=== PATIENT | female | born 1990 | race Native Hawaiian/Other Pacific Islander ===

== ENCOUNTER 2016-10-31 08:34 | Outpatient (CLI) | payer OTHER | END 2016-10-31 21:36 | disposition home or self-care (01) | LOC: US 08:34 | DX: R10.11 Right upper quadrant pain (principal) ==

== ENCOUNTER 2016-11-03 06:36 | Observation (INO) | payer OTHER ==
[~2016-11-03] VITALS: Ht 162.6 cm; Wt 87.7 kg
[2016-11-03] VITALS (11 sets, daily range): BP systolic 105–133; BP diastolic 56–85; TEMP 97.7–98.8; Ht 162.6 cm; Wt 87.7 kg
[2016-11-03 08:37] LABS: POTASSIUM 4.1 mmol/L (3.6-5.2); SODIUM 135 mmol/L (136-145)
[2016-11-03 08:46] LABS: PLATELET COUNT 327 K/uL (152-353)
[2016-11-04 00:18] VITALS: BP 122/79; TEMP 98.3
--- NOTE | 2016-11-04 01:24 | NUR ---
PT READY FOR DISCHARGE. HAS WALKED TO BATHROOM X2 TO URINATE. DRANK WATER WITHOUT C/O NAUSEA OR VOMITING. IV DC/D INTACT NO VOICED COMPLAINTS. OUT BY WHEELCHAIR TO AWAITING VEHICLE. DISCHARGE INSTRUCTIONS GIVEN, AND PRESCRIPTION FOR PERCOCET GIVEN.
== END 2016-11-04 01:25 | disposition home or self-care (01) ==
LOC: ED 06:36 → MED/SURG 07:55
PROVIDERS: ADMIT Emergency Medicine
PROC: 0FT44ZZ Resection of Gallbladder, Percutaneous Endoscopic Approach (ICD-10-PCS; principal; 2016-11-03)
DX: K80.12 Calculus of gallbladder with acute and chronic cholecystitis without obstruction (principal)
CPT/HCPCS: 80053; 81000; 81025; 82150; 83690; 85027; 96361; 96365; 96366; 96367; 96375; 99220; 99284; G0378; J2001; J2175; J2270; J2405; J2543; J2704; J3490